=== PATIENT | female | born 1940 | race Caucasian/White ===

== ENCOUNTER → 2018-04-13 | Outpatient (CLI) | payer MEDICARE | END | disposition home or self-care (01) | LOC: CFH 11:31 | PROVIDERS: ATTEND Internal Medicine Cardiovascular Disease | DX: I48.0 Paroxysmal atrial fibrillation (principal); I10 Essential (primary) hypertension; R00.2 Palpitations | CPT/HCPCS: 71046 ==

== ENCOUNTER 2018-12-31 10:04 | Day surgery (SDC) | payer MEDICARE ==
[~2018-12-31] VITALS: Ht 162.6 cm; Wt 81.8 kg
[2018-12-31] MEDS ORDERED: POTA10TA6 PO (10:40)
[2018-12-31] MEDS ORDERED: APIX5TAB PO (10:40)
[2018-12-31] MEDS ORDERED: RIVA20TA PO (10:40)
[2018-12-31] MEDS ORDERED: FURO20TA3 PO (10:40)
[2018-12-31] MEDS ORDERED: LEVO75TA PO (10:40)
[2018-12-31] MEDS ORDERED: METO50TA82 PO (10:40)
[2018-12-31 10:43] VITALS: BP 151/83
[2018-12-31 11:19] LABS: ANION GAP 6 mmol/L (5-15); CALCIUM 8.5 mg/dL (8.5-10.1); CHLORIDE 110 mmol/L (98-107)
[2018-12-31 11:22] LABS: CREATININE 0.82 mg/dL (0.55-1.02)
[2018-12-31] MEDS ORDERED: PROPOFOL 10 MG/ML, 20ML ONE (12:15)
== END 2018-12-31 13:51 | disposition home or self-care (01) ==
LOC: CACL 10:04
PROVIDERS: ATTEND Internal Medicine Cardiovascular Disease
DX: I48.0 Paroxysmal atrial fibrillation (principal); I10 Essential (primary) hypertension; F17.290 Nicotine dependence, other tobacco product, uncomplicated; Z79.01 Long term (current) use of anticoagulants; Z79.890 Hormone replacement therapy; Z79.899 Other long term (current) drug therapy; Z86.73 Personal history of transient ischemic attack (TIA), and cerebral infarction without residual deficits
CPT/HCPCS: 36415; 80048; 92960; 93005; J2704

== ENCOUNTER 2020-02-09 06:05 | Day surgery (SDC) | payer MEDICARE ==
[~2020-02-09] VITALS: Ht 162.6 cm; Wt 85.0 kg
[~2020-02-09 06:05] MED LIST: APIX5TAB PO; FURO20TA3 PO; LEVO75TA PO; METO50TA82 PO; POTA10TA6 PO; RIVA20TA PO
[2020-02-09] MEDS ORDERED: SODIUM CHLORIDE 0.9% 500 ML IV PRN (06:36)
[2020-02-09 06:59] VITALS: BP 155/79
[2020-02-09] MEDS ORDERED: METO50TA6 PO (07:05)
[2020-02-09] MEDS ORDERED: METO25TA4 PO (07:06)
[2020-02-09 07:17] LABS: ANION GAP 6 mmol/L (5-15); CALCIUM 8.8 mg/dL (8.5-10.1); CHLORIDE 104 mmol/L (98-107); CREATININE 1.09 mg/dL (0.55-1.02)
[2020-02-09] MEDS ORDERED: PROPOFOL 10 MG/ML, 20ML ONE (07:44)
== END 2020-02-09 09:16 | disposition home or self-care (01) ==
LOC: CACL 06:05
PROVIDERS: ATTEND Internal Medicine Cardiovascular Disease
DX: I48.0 Paroxysmal atrial fibrillation (principal); I10 Essential (primary) hypertension; Z79.899 Other long term (current) drug therapy; Z72.89 Other problems related to lifestyle; Z79.01 Long term (current) use of anticoagulants
CPT/HCPCS: 36415; 80048; 92960; J2704

== ENCOUNTER → 2020-03-15 | Outpatient (CLI) | payer MEDICARE ==
[~2020-03-15] MED LIST changes: +METO25TA4 PO; +METO50TA6 PO
[2020-03-15 16:01] LABS: T4 (THYROXINE) 10.3 mcg/dL (4.8-13.9)
== END | disposition home or self-care (01) ==
LOC: CFH 14:56
PROVIDERS: ATTEND Internal Medicine Cardiovascular Disease
DX: I10 Essential (primary) hypertension (principal); I48.0 Paroxysmal atrial fibrillation; R00.2 Palpitations; G47.33 Obstructive sleep apnea (adult) (pediatric)
CPT/HCPCS: 36415; 84436; 84481

== ENCOUNTER → 2020-04-20 | Outpatient (CLI) | payer MEDICARE ==
[2020-04-20 09:50] LABS: ALBUMIN 3.2 g/dL (3.4-5.0); ANION GAP 5 mmol/L (5-15); CALCIUM 8.6 mg/dL (8.5-10.1); CHLORIDE 111 mmol/L (98-107)
[2020-04-20 09:53] LABS: ALANINE AMINOTRANSFERASE 35 U/L (12-78); ALKALINE PHOSPHATASE 179 U/L (45-117); BILIRUBIN,TOTAL 2.4 mg/dL (0.2-1.0); TOTAL PROTEIN 7.6 g/dL (6.4-8.2)
== END | disposition home or self-care (01) ==
LOC: LAB 09:26
PROVIDERS: ATTEND Registered Nurse
DX: I10 Essential (primary) hypertension (principal); I48.0 Paroxysmal atrial fibrillation; R00.2 Palpitations
CPT/HCPCS: 36415; 80053

== ENCOUNTER → 2021-01-18 | Outpatient (CLI) | payer MEDICARE | END | disposition home or self-care (01) | LOC: CFH 13:36 | PROVIDERS: ATTEND Internal Medicine Cardiovascular Disease | DX: I08.8 Other rheumatic multiple valve diseases (principal); I48.0 Paroxysmal atrial fibrillation | CPT/HCPCS: 93306 ==

== ENCOUNTER 2021-02-19 10:43 | Outpatient (CLI) | payer MEDICARE ==
[2021-02-19] MEDS ORDERED: OMNIPAQUE 350 MG/ML, 100ML BOTTLE ONE (11:44)
== END 2021-02-19 23:59 | disposition home or self-care (01) ==
LOC: CFH 10:43
PROVIDERS: ATTEND Internal Medicine Cardiovascular Disease
DX: I27.20 Pulmonary hypertension, unspecified (principal); E04.2 Nontoxic multinodular goiter
CPT/HCPCS: 71275; Q9967

== ENCOUNTER 2021-03-04 07:44 | Day surgery (SDC) | payer MEDICARE ==
[~2021-03-04] VITALS: Ht 162.6 cm; Wt 80.9 kg
[2021-03-04] MEDS ORDERED: DIPHENHYDRAMINE 50 MG/ML, 1ML ONE (08:04)
[2021-03-04] MEDS ORDERED: MAGN400T36 PO (08:21)
[2021-03-04] MEDS ORDERED: RIVA20TA PO (08:21)
[2021-03-04] MEDS ORDERED: LOSA25TA25 PO ×2 (08:21→11:57)
[2021-03-04] MEDS ORDERED: SOTA80TA PO (08:21)
[2021-03-04 08:27] VITALS: BP 168/68
[2021-03-04] MEDS ORDERED: SODIUM CHLORIDE 0.9% 1,000 ML IV SCH (08:30)
[2021-03-04] MEDS ORDERED: FENTANYL PF 100 MCG/2ML ONE (08:30)
[2021-03-04] MEDS ORDERED: MIDAZOLAM 1 MG/ML, 2ML ONE (08:30)
[2021-03-04] MEDS ORDERED: DIPHENHYDRAMINE 50 MG/ML, 1ML IVPush ONE (08:30)
[2021-03-04 08:38] LABS: MEAN CORPUSCULAR HEMOGLOBIN 22.1 pg (27.0-34.8); MEAN CORPUSCULAR HGB CONC 33.3 g/dL (32.4-35.8); MEAN PLATELET VOLUME 8.8 fL (7.4-10.4); PLATELET COUNT 215 x10^3/uL (130-400); RED BLOOD COUNT 4.57 x10^6/uL (3.82-5.3); RED CELL DISTRIBUTION WIDTH 16.5 % (9.6-15.2)
[2021-03-04 08:40] LABS: ANION GAP 6 mmol/L (5-15); CALCIUM 8.2 mg/dL (8.5-10.1); CHLORIDE 109 mmol/L (98-107); CREATININE 0.98 mg/dL (0.55-1.02)
[2021-03-04 08:41] LABS: INTERNATIONAL NORMALIZED RATIO 1.18 (0.93-1.1); PROTHROMBIN TIME 12.5 Seconds (9.6-11.5)
[2021-03-04 09:03] LABS: ANISOCYTOSIS 2+; BAND#(MANUAL) 0.08 x10^3/uL; BANDS%(MANUAL) 1 % (0-7); EOS#(MANUAL) 1.01 x10^3/uL (0.0-0.4); EOS% (MANUAL) 13 % (1-7); LYMPH#(MANUAL) 2.18 x10^3/uL (1-3.4); LYMPHS% (MANUAL) 28 % (22-44); MICROCYTOSIS 2+; MONOS#(MANUAL) 0.86 x10^3/uL (0.3-2.7); MONOS% (MANUAL) 11 % (2-9); OVALOCYTES 1+; POLYCHROMASIA 1+; REACTIVE LYMPHS # (MANUAL) 0.23 x10^3/uL (0-0); REACTIVE LYMPHS % (MANUAL) 3 % (0-0); SEG#(MANUAL) 3.43 x10^3/uL (1.8-6.8); SEGS% (MANUAL) 44 % (42-75); TARGET CELLS 1+; TEAR DROPS 1+
[2021-03-04 09:04] LABS: <PLATELET ESTIMATE> ADEQUATE; <PLT MORPHOLOGY> NORMAL PLT MORPH; HYPOCHROMIA 2+
[2021-03-04] MEDS ORDERED: POTASSIUM CHLORIDE 20 MEQ TAB.ER.PRT PO ONE (11:00)
[2021-03-04] MEDS ORDERED: FUROSEMIDE 40 MG/4 ML IV ONE (11:00)
[2021-03-04] MEDS ORDERED: FUROSEMIDE 40 MG/4 ML ONE (11:32)
[2021-03-04] MEDS ORDERED: BUME1TAB21 PO (11:58)
[2021-03-04] MEDS ORDERED: SPIR25TA PO (11:58)
== END 2021-03-04 12:59 | disposition home or self-care (01) ==
LOC: CACL 07:44
PROVIDERS: ATTEND Internal Medicine Cardiovascular Disease
DX: R06.02 Shortness of breath (principal); I48.0 Paroxysmal atrial fibrillation; I27.20 Pulmonary hypertension, unspecified; G47.30 Sleep apnea, unspecified; F17.210 Nicotine dependence, cigarettes, uncomplicated; E66.3 Overweight; Z68.30 Body mass index [BMI] 30.0-30.9, adult; Z79.01 Long term (current) use of anticoagulants; Z79.890 Hormone replacement therapy; Z79.899 Other long term (current) drug therapy
CPT/HCPCS: 36415; 80048; 83880; 85025; 85610; 85730; 93451; 99156; 99157; C1769; C1894; J1200; J1940; J2250; J3010

== ENCOUNTER → 2021-03-15 | Outpatient (CLI) | payer MEDICARE ==
[~2021-03-15] MED LIST changes: +BUME1TAB21 PO; +LOSA25TA25 PO; +MAGN400T36 PO; +SOTA80TA PO; +SPIR25TA PO
[2021-03-15 13:41] LABS: ANION GAP 8 mmol/L (5-15); CALCIUM 8.9 mg/dL (8.5-10.1); CHLORIDE 101 mmol/L (98-107); CREATININE 1.69 mg/dL (0.55-1.02)
== END | disposition home or self-care (01) ==
LOC: LAB 13:02
PROVIDERS: ATTEND Internal Medicine Cardiovascular Disease
DX: I50.32 Chronic diastolic (congestive) heart failure (principal); R06.02 Shortness of breath; I48.0 Paroxysmal atrial fibrillation
CPT/HCPCS: 36415; 80048; 83880